=== PATIENT | female | born 2000 | race African-American/Black ===

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

== ENCOUNTER 2024-01-09 11:22 | Emergency (ER) | payer MEDICAID ==
[~2024-01-09] VITALS: Ht 157.5 cm; Wt 61.0 kg
[2024-01-09 11:29] VITALS: BP 133/61; PULSE 80; RESP 20; TEMP 98.6; O2SAT 100
[2024-01-09] MEDS ORDERED: IBUP-2029 MT (13:02)
[2024-01-09] MEDS ORDERED: CYCL5TAB MT (13:02)
== END 2024-01-09 14:00 | disposition home or self-care (01) ==
LOC: ER 11:22
DX: M79.18 Myalgia, other site (principal); V98.8XXA Other specified transport accidents, initial encounter; Y93.89 Activity, other specified; Y92.89 Other specified places as the place of occurrence of the external cause; Y99.8 Other external cause status
CPT/HCPCS: 99283

== ENCOUNTER 2024-01-14 12:11 | Emergency (ER) | payer MEDICAID ==
[~2024-01-14] VITALS: Ht 152.4 cm; Wt 56.6 kg
[~2024-01-14 12:11] MED LIST: CYCL5TAB MT; IBUP-2029 MT
[2024-01-14 12:19] VITALS: BP 113/76; O2SAT 100
[2024-01-14 12:20] VITALS: PULSE 90
== END 2024-01-14 15:10 | disposition home or self-care (01) ==
LOC: ER 12:19
DX: S01.81XD Laceration without foreign body of other part of head, subsequent encounter (principal); Z48.02 Encounter for removal of sutures; X58.XXXD Exposure to other specified factors, subsequent encounter
CPT/HCPCS: 99281